=== PATIENT | male | born 1995 | race Caucasian/White ===

== ENCOUNTER 2019-07-15 12:24 | Emergency (ER) | payer OTHER ==
[~2019-07-15] VITALS: Ht 177.8 cm; Wt 75.0 kg
[2019-07-15] MEDS ORDERED: dexameTHASONE 4 MG/ML 1ML VIAL (J1100) IV ONE (13:15)
[2019-07-15] MEDS ORDERED: KETOROLAC 30 MG/ML VIAL (J1885) IV ONE (13:15)
[2019-07-15] MEDS ORDERED: NS 1,000 ML IV ONE (13:15)
[2019-07-15] MEDS ORDERED: METOCLOPRAMIDE INJ 10MG/2ML VIAL (J2765) IV ONE (13:15)
[2019-07-15 13:48] LABS: HEMATOCRIT 45.3 % (42.0-52.0); HEMOGLOBIN 15.8 g/dl (13.5-17.5); MEAN CORPUSCULAR HEMOGLOBIN 31.4 pg (27.0-33.0); MEAN CORPUSCULAR HGB CONC 34.9 g/dl (32.0-36.5); MEAN CORPUSCULAR VOLUME 90.1 fl (80.0-96.0); PLATELET COUNT, AUTOMATED 240 10^3/uL (150-450); RED BLOOD COUNT 5.03 10^6/uL (4.30-6.10)
[2019-07-15 14:12] LABS: BLOOD UREA NITROGEN 14 MG/DL (7-18); C REACTIVE PROTEIN QUANTITATIV < 0.30 MG/DL (0.00-0.30); CALCIUM LEVEL 9.4 MG/DL (8.5-10.1); CARBON DIOXIDE LEVEL 31 MEQ/L (21-32); CHLORIDE LEVEL 105 MEQ/L (98-107); CREATININE FOR GFR 1.12 MG/DL (0.70-1.30); ERYTHROCYTE SEDIMENTATION RATE 4 mm/hr (0-15); GLOMERULAR FILTRATION RATE > 60.0 (>60); GLUCOSE, FASTING 65 MG/DL (70-100); POTASSIUM SERUM 4.2 MEQ/L (3.5-5.1); SODIUM LEVEL 139 MEQ/L (136-145)
[2019-07-15] MEDS ORDERED: ACETAMINOPHEN 500 MG TAB PO ONE (14:15)
[2019-07-15] MEDS ORDERED: diphenhydrAMINE INJ 50MG/ML VIAL (J1200) IV ONE (14:15)
[2019-07-15] MEDS ORDERED: HALOPERIDOL 5 MG/ML VIAL (J1630) IV ONE (14:15)
[2019-07-15] MEDS ORDERED: LIDOCAINE 2% MDV 20 ML VIAL SC ONE (15:00)
[2019-07-15] MEDS ORDERED: AMIT25TA PO (15:37)
[2019-07-15 15:47] VITALS: BP 121/63
--- NOTE | 2019-07-17 08:19 | REP ---
CT of the brain without IV contrast: There are no comparisons. There is no hemorrhage. There is no edema, mass effect or midline shift. The cortical stripe is unremarkable. Ventricles are normal size and midline. The visualized paranasal sinuses and mastoid air cells are clear. Impression: There is no hemorrhage, acute infarct or mass. Negative CT study of the brain. Electronically Signed by Prakash Wyatt MD 07/15/2019 01:24 P
== END 2019-07-15 16:20 | disposition home or self-care (01) ==
LOC: M ED 12:24
DX: M54.81 Occipital neuralgia (principal); B00.9 Herpesviral infection, unspecified; Z88.0 Allergy status to penicillin; F17.210 Nicotine dependence, cigarettes, uncomplicated
CPT/HCPCS: 20552; 70450; 80048; 85027; 85652; 86140; 96374; 96375; 99284; J1100; J1885; J2765